=== PATIENT | female | born 1940 | race Caucasian/White ===

== ENCOUNTER 2017-07-29 13:20 | Emergency (ER) | END 2017-07-29 13:24 | disposition left against medical advice (07) ==

== ENCOUNTER 2018-11-04 12:50 | Emergency (ER) | payer OTHER, MEDICAID ==
[~2018-11-04] VITALS: Wt 75.0 kg
[~2018-11-04 12:50] MED LIST: ACET-141 PO; NAPR-985 PO
--- NOTE | 2018-11-04 13:27 | ERD ---
ER Documentation Chief Complaint Chief Complaint back pain from a ground level fall since 2 days ago . ambulatory no deform HPI This is a 78-year-old female with a past medical history of brain aneurysm status post repair complicated by hydrocephalus status post [employer] shunt, a prolonged intubation course status post tracheostomy, dementia who is presenting after a mechanical fall. According to the paramedics, the patient had a ground- level fall to her knees during physical therapy. The patient reportedly fell onto her knees bilaterally. The patient endorses chronic arthritis with chronic knee pain and ankle pain, but she believes that perhaps it is worse today. The paramedics and the patient cannot tell me if she hit her head, but she denies any head trauma, headache or vision changes. She denies any neck pain. She does report exacerbated chronic lower back pain. She denies any focal deficits. She denies any saddle anesthesia. She denies any retention or incontinence of urine or stool. She denies any weakness or numbness or tingling to the face or extremities. The patient does not endorse any cardiothoracic or abdominal trauma. She denies any chest pain or trouble breathing. She denies any abdominal pain. ROS All systems reviewed and are negative except as per history of present illness. Medications Home Meds Active Scripts Naproxen* (Naprosyn*) 500 Mg Tablet, 500 MG PO BID PRN for PAIN AND/OR INFLAMMATION, #30 TAB Prov:FELICIA SELBY [employer]THROP[employer]Y PROFESSOR 11/15/14 Acetaminophen* (Acetaminophen*) 500 MG Extra Strength Tablet, 500 MG PO 6H for PAIN for 7 Days, TAB Prov:AUGUSTA CAGE [employer] ANTHROPOLOGY PROFESSOR 08/19/14 Allergies Allergies: Coded Allergies: No Known Allergy (Unverified , 08/11/14) PMhx/Soc History of Surgery: Yes (aneurysm repair/[employer] shunt,tracheostomy,hysterectomy,knee sx) Anesthesia Reaction: No Hx Neurological Disorder: Yes (brain sx, hydrocefaly, brain aneurism, walk with a waker) Hx Respiratory Disorders: Yes (trach placement d/t brain sx) Hx Cardiac Disorders: No Hx Psychiatric Problems: Yes (depression) Hx Miscellaneous Medical Probl: Yes (brain aneurysm) Hx Alcohol Use: No Hx Substance Use: Yes (50 years ago) Hx Tobacco Use: No FmHx Family History: No diabetes Physical Exam Vitals Vital Signs Date Temp Pulse Resp B/P (MAP) Pulse Ox O2 O2 Flow FiO2 Time Delivery Rate 11/04/18 98.1 72 18 116/73 98 13:03 (87) Physical Exam Const: No apparent distress, well-developed, well-nourished Head: Normocephalic, Atraumatic. No morrow sign. Eyes: Normal Conjunctiva. Extraocular movements intact. Pupils equal, round and reactive to light. No raccoon eyes ENT: Normal External Ears, Nose and Mouth. No hemotympanum. No oral trauma. Neck: No midline spinal tenderness. No step-offs or deformities. No meningismus. Tracheostomy in place without any secretions or surrounding erythema or induration or purulence or fluctuance. Resp: Clear to auscultation bilaterally, No wheezes, rales or rhonchi Cardio: Regular rate and rhythm. No murmurs, rubs or gallops Abd: Soft, non tender, non distended. Normal bowel sounds Skin: No petechiae or rashes Back: No midline tenderness. No step-offs or deformities. No CVA tenderness Ext: No cyanosis, or edema. Tenderness to the bilateral knees anteriorly, but full range of motion without any obvious deformity. Tenderness to the right ankle with full range of motion without any obvious deformity. Neur: Awake and alert. Cranial nerves intact. No facial droop. Normal strength, sensation and coordination. Psych: Normal Mood and Affect Results 24 hrs Current Medications Medications Dose Sig/Steffanie Start Time Status Last (Trade) Ordered Route PRN Stop Time Admin Dose Reason Admin 650 mg ONCE ONCE 11/04/18 DC 11/04/18 Acetaminophen PO 13:30 11/04/18 13:16 (Tylenol 13:31 Tab) Procedures/MDM MDM The patient's presentation warrants further investigation. Previous medical records, if available, were reviewed. IMAGING Imaging and Radiology interpretation reviewed. CT Head FINDINGS: The visualized scalp and calvarium are remarkable for a right frontal shunt with tip superimposed over the left frontal horn of the lateral ventricle. Enlargement of the right lateral ventricle is noted with decompression of the left lateral ventricle. Marked right ventricular enlargement and ventric ulomegaly is noted. Recommend correlation with shunt function. No prior studies are available with which to compare. Bifrontal horn diameter currently measures 4.2 cm in transverse dimensions. The patient is status post right temporal craniectomy changes with an aneurysm clip present superimposed over the expected location of the right posterior communicating artery. No evidence for acute hemorrhage or extra-axial fluid collections are present. Decreased attenuation is noted in the bilateral inferior frontal gyri and the right temporal lobe. This may represent sequela of chronic infarcts or contusions. In addition wedge- shaped decreased attenuation is also noted in the left superior frontal gyrus and the left superior cerebellar hemisphere compatible with chronic infarcts. Decreased attenuation is also noted along the right frontal shunt tract. Mild sulcal effacement is noted compatible with mild diffuse volume loss. Decreased attenuation is noted in the bilateral subcortical white matter, centrum semiovale and periventricular white matter compatible with mild chronic microvascular ischemic disease. IMPRESSION: 1. No evidence of acute intracranial hemorrhage or infarcts. 2. Right transfrontal shunt with tip superimposed over the left frontal horn of the lateral ventricle and moderate to severe right ventricular dilatation. No prior studies available at this time for comparison. 3. 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 Sequela of chronic infarcts or contusions of the bilateral inferior frontal lobe and the right temporal lobe as well as gliosis along the right frontal shunt tract. 5. Mild chronic microvascular ischemic disease and diffuse volume loss 6. Status post right temporal craniectomy and aneurysm clip superimposed over expected location of right posterior communicating artery. Electronically viewed and signed by .Irene Boland MD, MD on 11/04/2018 14:09 CT C-Spine FINDINGS: There is straightening of the normal lordosis of the cervical spine. No acute fractures or traumatic subluxations are present. 3 mm anterior subluxation of C3 and C4 and C7 on T1 is present. Severe degenerative endplate and disc changes at C4-5 C5-6 and C6-7 levels are noted with moderate disc space height loss at C7-T1. The posterior elements are intact and well aligned. Bilateral paravertebral soft tissues demonstrate tracheostomy present. The spe cific axial levels are as follows: Occiput to C2: The visualized bilateral mastoid air cells, posterior fossa and spinal canal are normal. Multiple degenerative changes are noted at the atlantoaxial articulation and calcification is present of the transverse ligaments. C2-3: The intervertebral disc space is normal . A mild 3 mm broad-based bulge is present. Ankylosis of the right greater than left facet joint is noted with severe right and moderate left facet osteoarthropathy. Mild bilateral uncovertebral osteophytes are present. The central canal and bilateral subarticular recesses are patent. Mild left and moderate right neural foraminal stenosis is present. Recommend correlation with a right greater than left C3 radiculopathy. C3-4: The intervertebral disc height is normal. 3 mm anterior subluxation is present. A 4 mm moderate osteophytic bar and bulge is present. Severe right facet greater than mild to moderate left facet osteoarthropathy is present with ankylosis. Moderate right greater than left uncovertebral osteoarthropathy is present. The central canal and bilateral subarticular recesses are patent. The left neural foramen is patent and severe stenosis is noted of the right neural foramen. Recommend correlation with a right C4 radiculopathy. C4-5: Severe degenerative endplate and disc changes are present at this level. Mild 3 mm osteophytic bar and bulge is present. Bilateral uncovertebral osteophytes and mild bilateral facet arthropathy with facet ankylosis is noted. AP canal dimension is 8 mm. Severe bilateral uncovertebral osteoarthropathy is present. This results in a mild central canal stenosis, moderate bilateral sub articular recess stenosis, and severe right greater than left neural foraminal stenosis. Recommend correlation with a right greater than left C5 radiculopathy. C5-6: Severe degenerative endplate and disc changes are present at this level. 4 mm moderate broad-based bulge and osteophyte is present. Severe bilateral uncovertebral osteoarthropathy is present with mild bilateral facet arthropathy. AP canal dimension is 8.6 mm. This results in a mild central canal stenosis, severe bilateral subarticular recess stenosis and severe bilateral neural foraminal stenosis. Recommend correlation with a bilateral C6 radiculopathy. C6-7: Severe degenerative endplate and disc changes are present at this level. A 2 mm mild osteophytic bar and bulge is present. AP canal dimension is 9.8 mm. Left greater than right uncovertebral osteoarthropathy and facet arthropathy is present. These findings result in a mild central canal stenosis without subarticular recess stenosis. Moderate left greater than mild right neural foraminal stenosis is present. Recommend correlation with a left greater than right C7 radiculopathy. C7-T1: Moderate disc space height loss is noted this level. The central canal, subarticular recess and neural foramen are patent. IMPRESSION: 1. Straightening of the normal cervical lordosis without evidence for acute fractures or traumatic subluxations 2. 3 mm, degenerative, anterior subluxation of C3-4 and C7-T1 3. Multilevel broad-based disc osteophyte complexes at the C2-3 through C6-7 levels with mild central canal stenosis at C4-5 through C6-7 4. Multilevel neural foraminal stenosis at the C2-3 through C6-7 levels and correlate with respective radiculopathy. 5. Multilevel facet and uncovertebral osteoarthropathy and ankylosis as noted above. Electronically viewed and signed by Irene Boland MD, on 11/04/2018 14:24 CXR FINDINGS: Tracheostomy tube and right-sided ventriculoperitoneal tubing is again seen, grossly stable. The distal tube overlying the upper abdomen is not well visualized. Heart size is mildly prominent, stable. Focal linear interstitial densities seen at the right base. There is no pleural effusion or pneumothorax. The osseous structures are unremarkable. IMPRESSION: Minimal bibasilar atelectasis. Electronically viewed and signed by Physician Jarvis on 11/04/2018 15:24 XR Pelvis FINDINGS: There is no evidence of fracture dislocation. Again noted is a medial bilateral femoral joint space narrowing, stable. The symphysis pubis and sacroiliac joints are unremarkable. The sacrum is partially obscured secondary to overlying stool content. Soft tissues are unremarkable. IMPRESSION: No acute findings Electronically viewed and signed by Physician Jarvis on 11/04/2018 15:25 XR R Knee FINDINGS: The osseous structures are intact with no evidence of fracture or subluxation. Tricompartmental spurs are present with severe medial compartment joint space narrowing with subchondral sclerosis. Calcification is seen within the lateral compartment consistent with chondrocalcinosis. No joint effusion is seen. The soft tissues are normal in appearance. IMPRESSION: No acute findings. Electronically viewed and signed by Physician Jarvis on 11/04/2018 15:03 XR L Knee FINDINGS: The osseous structures are intact with no evidence of fracture or subluxation. the patient has an intramedullary greg within the femur transfix with 3 distal screws. There is no sonia hardware lucency or fracture of the hardware. All 3 screws breach the opposite cortex. Images the knee demonstrate severe medial compartment joint space narrowing with remodelling and spur formation. There is cortical irregularity along the medial tibial cortex sug gesting a partially healed fracture. Mild calcific densities are seen within the lateral compartment consistent with chondrocalcinosis. IMPRESSION: No acute findings. Degenerative changes and postop part of changes as described above. Electronically viewed and signed by Physician Jarvis on 11/04/2018 15:14 XR R Ankle FINDINGS: The bones are osteopenic. There is a fracture deformity of the distal fibular diaphysis as well as distal tibial diaphysis. There are severe degenerative changes of the tibiotalar joint with severe joint space narrowing and subchondral sclerosis and anterior spurs. Small spurs are seen also at the distal fibular tip. There is mild surrounding soft tissue swelling. IMPRESSION: There is mild surrounding soft tissue swelling however no acute fracture is visualized. There are post traumatic changes and degenerative changes. Electronically viewed and signed by Physician Cami on 11/04/2018 15:02 TREATMENT/DISPOSITION The patient presents after a ground-level fall with lower extremity joint pains. I have low suspicion for extremity injury. There is no evidence of any penetrating injuries. The patient does have chronic osteoarthritis, which I suspect to be exacerbated after her fall. The patient did not lose consciousness. She did not have any lightheadedness or dizziness. I have low suspicion for syncope and I do not feel the patient requires a full syncope work-up. Since there is no clarity regarding the possibility of head trauma, the patient had a full trauma work-up. The patient was evaluated fully without evidence of emergent posttraumatic pathology. The patient's CT imaging of the head and cervical spine do not reveal any emergent pathology. The patient has no focal deficits. I've low suspicion for intracranial pathology. I have low suspicion for cerebral ischemia or intracranial hemorrhage. There is evidence of right ventriculomegaly on the CT scan. There are no previous studies to compare. I did discuss this with the on-call neurosurgeon, Dr. Locke, who does agree that this is likely chronic. The patient may follow-up with her neurosurgeon or with our on-call neurosurgeon in an outpatient setting. The patient has no cervical spine tenderness. She has significant degenerative changes, but no fracture or dislocation. He can move his neck in all directions without any pain. As stated above, he does not have any focal deficits. He is not altered or intoxicated. He does not have any distracting injuries. The patient's cervical spine was clinically cleared using the Nexus C-spine rule. The patient does not have any saddle anesthesia. He has not been incontinent of urine or stool. He has not had any retention of urine or stool. I have low suspicion for spinal cord injury. The patient's chest x-ray does not reveal any evidence of pneumonia or pneumothorax or pulmonary edema or pleural effusion. The patient's cardiomediastinal silhouette reveals mild cardiomegaly but is otherwise unremarkable. I do not suspect pericardial effusion. I do not see any mediastinal free air. I have low suspicion for esophageal tear or rupture. The patient does not have a widened mediastinum. The patient does not have chest pain radiating to the back. It does not have a sharp or tearing quality. I have low suspicion for thoracic aortic aneurysm or rupture or dissection. The patient's symptoms are not consistent with pulmonary embolism. The patient does not have any abdominal pain. I have low suspicion for posttraumatic intra-abdominal pathology. The patient's vital signs are unremarkable. I low suspicion for hepatic or splenic or renal trauma. The patient does not have any GI or urinary bleeding. I decreased suspicion for intestinal injury. I have low suspicion for urethral injury. The patient came with a cane to the emergency department. Based on previous medical records, she is supposed to be ambulating with a walker. She is encouraged to utilize a walker. The patient was treated with Tylenol. DISCHARGE Upon reevaluation of the patient, symptoms have improved. No emergent diagnoses were identified. At this time, I feel that the patient stable for discharge back to her [facility] facility. The patient was instructed to follow-up with a primary care physician in 1-3 days. The patient will be given strict precautions with which to return to the emergency department. Prescriptions: None The patient's blood pressure was elevated at greater than 120/80 while in the emergency department. The patient was otherwise stable with no evidence of hypertensive urgency or emergency. The patient does not require admission for blood pressure control. I have discussed with the patient the risks of hypertension. I have instructed the patient to return to the ER for any new or worsening symptoms including chest pain, shortness of breath, headache, blurred vision, confusion, nausea, vomiting or LOC. I have advised the patient to follow up with the primary care physician for outpatient monitoring and treatment for hypertension in 1-3 days. Disclaimer: Inadvertent spelling and grammatical errors are likely due to EHR/dictation software use and do not reflect on the overall quality of patient care. Note that the electronic time recorded on this note does not necessarily reflect the actual time of the patient encounter. Departure Diagnosis: Primary Impression: Fall from ground level Additional Impressions: Bilateral anterior knee pain Ankle pain, right Chronicity: unspecified Qualified Codes: M25.571 - Pain in right ankle and joints of right foot Hydrocephalus in adult Condition: Stable Patient Instructions: Fall Prevention, Fall, Mechanical, Knee Pain, Uncertain Cause Additional Instructions: Thank you for for coming to [facility] for your care today. Please ask your nurse or provider if you have questions about your care today and do not leave until all your questions have been answered. Please use any medications given as directed and follow-up with your doctor (or the doctor you were referred to) in the next 1-3 days. If you do not have a primary care doctor you may follow up at the [facility] or [facility] (listed below). You may also use motrin and tylenol as needed for fever and/or pain unless instructed otherwise by your provider or nurse. Indications for more urgent follow-up have been discussed, but you may return to the Emergency Department at ANY time for any worrisome or worsening symptoms. If you have abdominal pain, please know that no test or exam you received is perfect and you should follow up within 8 hours for continued pain. If you had any imaging studies today, such as an X-Ray or CT Scan, these studies will be reviewed later by a radiologist. You will be called if there are important findings that were not identified today, so make sure the contact information you provided at registration is correct. If you received any narcotic pain control medicine today, such as Vicodin, Morphine or Dilaudid, your coordination and judgment may be affected for a number of hours. Please do not drive or operate heavy machinery, and you may want someone to assist you at home. If you were given a prescription for narcotic medication, be aware that it is very addictive- use sparingly and only if necessary. PLEASE SEEK FURTHER EVALUATION AND MANAGEMENT AT YOUR DOCTORS OFFICE WITHIN THE NEXT 1-3 DAYS. IT IS YOUR RESPONSIBILITY TO MAKE AN APPOINTMENT FOR FOLOW-UP CARE. IF YOU HAVE A PRIMARY DOCTOR, PLEASE CALL THEIR OFFICE TO SCHEDULE AN APPOINTMENT FOR FOLLOW UP. IF YOU DO NOT HAVE A PRIMARY DOCTOR YOU CAN CALL OUR PHYSICIAN REFERRAL HOTLINE AT IF YOU CAN NOT AFFORD TO SEE A PHYSICIAN YOU CAN CHOSE FROM THE FOLLOWING [facility]: [facility] [address] [place] [address] [facility] [facility] [address] [facility] [address] [facility] [address] [facility]. [facility]. [address] SYLVIE JOHNSON MD Nov 04, 2018 13:25
[2018-11-04] MEDS ORDERED: ACETAMINOPHEN 325 MG TAB PO ONE (13:30)
[2018-11-04 16:30] VITALS: PULSE 89
[2018-11-04 18:00] VITALS: BP 150/100; RESP 18
== END 2018-11-04 17:00 | disposition home or self-care (01) ==
LOC: E/R 12:50
DX: M25.561 Pain in right knee (principal); M25.562 Pain in left knee; M25.571 Pain in right ankle and joints of right foot; G91.9 Hydrocephalus, unspecified; R51 Headache
CPT/HCPCS: 70450; 71045; 72125; 72170; 73562